=== PATIENT | female | born 1960 | race Caucasian/White ===

== ENCOUNTER 2020-05-11 09:55 | Emergency (ER) | payer BC, SELFPAY ==
[2020-05-11 10:18] VITALS: BP 144/91; PULSE 90; RESP 16; TEMP 36.8; O2SAT 97; BMI 31.8
--- NOTE | 2020-05-11 10:26 | HMH.EDUTC ---
[facility] [place] Clinical Impression: Dental infection Disposition: Home, Self-Care Condition on Discharge: Good Instructions: DI for Dental Pain, Clindamycin, Hydrocortisone Topical Additional Instructions: Stop taking Amoxicillin and start Clindamycin and follow up with Dentist tomorrow Continue taking oral steriods Topical Hydrocortisone to rash areas Return if needed straight to ER if any life threatening symptoms Prescriptions: clindamycin HCL [Clindamycin HCl 300mg Cap] 300 mg PO Q8 7 Days #21 cap Transmission Status: Received by [facility] Hydrocortisone Acetate [Hydrocortisone] 1 applicatio TP BID #1 tube Transmission Status: Received by [facility] Referrals: Edgard Ramires [Primary Care Provider] - As needed Time of Disposition: 10:50 Medical Decision Making - Kevin Inquiry Pt receiving controlled substance: No Kevin was queried for this patient: No Vital Signs: 05/11/20 10:18 05/11/20 11:02 Temperature 98.2 F 98.2 F Temperature Source Oral Oral Pulse Rate 90 Pulse Rate [Right Brachial] 90 Respiratory Rate 16 16 Blood Pressure 144/91 H Blood Pressure [Right Arm] 144/91 H Blood Pressure Mean [Right Arm] 108 Blood Pressure Source Automatic Cuff Blood Pressure Source [Right Arm] Automatic Cuff Blood Pressure Position Sitting Blood Pressure Position [Right Arm] Sitting 02 Sat by Pulse Oximetry 97 Oxygen Delivery Method Room Air Room Air Orders (Tests/Meds): ED MEDICATIONS Discontinued Medications Generic Name Dose Route Start Last Admin Trade Name Tuq PRN Reason Stop Dose Admin Ketorolac Tromethamine 60 mg 05/11/20 10:41 05/11/20 10:49 Ketorolac 60mg/2ml Vial IM 05/11/20 10:42 60 mg ONCE ONE Administration Medical Decision Narrative: Fluid filled blister like rash noted with two small areas on back of neck, one on forearm of left arm that appears to be drying and one on left ankle Reports last took Ibuprofen yesterday [facility] [place] - General Stated complaint: dental pain, knots in back of neck Time Seen by Provider: 05/11/20 10:26 Mode of Arrival: Ambulatory Source of Information: Patient Limitations: No Limitations Description of Symptoms (Recalled from Triage Doc. by RN): PATIENT REPORTS SHE HAD TWO TEETH PULLED X2 WEEKS AGO AND NOW HAS BLISTERS ON NECK, THIGHS AND FEET. BEEN ON AMOXICILLAN. HEENT Symptoms (Recalled from RN notes): No Resp Symptoms (Recalled from RN notes): No Skin Symptoms (Recalled from RN notes): Yes MS Symptoms (Recalled from RN notes): No Functional Status (Recalled from RN notes): WNL - History of Present Illness Provider Complaint: Patient states that she recently had two tooth extractions and surgeon cleaned out gum where she had infection from old root canal State that she doesnt think the antiboitics is working States that she is still having some pain States that she has been taking prescription medication but not helped much States that she also noticed a blister like lesions on the back of her neck one on her arm and one on her left ankle unsure if something has bite her or if it is from the medication - Related Data Previous Rx's Medication Instructions Recorded xkdxhafajxxyomj-iqpvkczxrpqkhtw-CT 10 ml PO Q4-6H PRN 7 Days #118 ml 06/13/19 2 mg-30 mg-10 mg/5 mL oral syrup Hydrocortisone Acetate 1 applicatio TP BID #1 tube 05/11/20 [Hydrocortisone] clindamycin HCL [Clindamycin HCl 300 mg PO Q8 7 Days #21 cap 05/11/20 300mg Cap] Allergies Allergy/AdvReac Type Severity Reaction Status Date / Time No Known Allergies Allergy Verified 06/13/19 10:26 - Worker's Comp Is this a Worker's Comp case?: No [facility] History - Hepatitis A Screen Drug use history?: No High risk sexual behaviors?: No History of sexually transmitted infection?: No Currently employed?: No Childcare worker?: No Do you have indoor plumbing?: Yes Do you have electricity?: Yes Attestation statement:: This patie
[2020-05-11 11:02] VITALS: BP 144/91; PULSE 90; RESP 16; TEMP 36.8; O2SAT 97
== END 2020-05-11 11:04 | disposition home or self-care (01) ==
PROVIDERS: Emergency Provider Nurse Practitioner; PCP Internal Medicine
DX: K04.7 Periapical abscess without sinus (principal)
CPT/HCPCS: 96372; 99201

== ENCOUNTER 2025-03-13 14:26 | Outpatient (CLI) | payer BC, SELFPAY ==
--- OUTSIDE RECORDS SUMMARY | 2025-03-13 14:31 | XMS_ITS | Clinical Summary ---
[facility] Organization [facility] Address [address] [place] [address] Care Team Providers Care Supervisor Weaving Name Role Phone Edgard Ramires MD Primary Care Provider [phone] Social History Tobacco Use Types Packs/Day Years Used Date Smoking Tobacco: Never Assessed Abuse Screen Answer Date Recorded Unsafe at Home or Work/School Not on file Feels Threatened by Someone? Not on file 02/2023 Does Anyone Keep You from Co ntacting Others or Doint Things Outside the Home? Not on file 04/04/2023 Physical Sign of Abuse Present Not on file 1 Housing Stability Answer Date Recorded Current Living Arrangements Not on file 02/2023 Potentially Unsafe Housing Conditions Not on mitra e 04/04/2023 Family and Community Support Answer Dar e Recorded Help with Day-to-Day Activities Not on file 04/04/2023 Lonely or Isolated Not on file 04/04/2023 Employment Answer Date Recorded Do you want help finding or keeping work or a candice b? Not on file 04/04/2023 Disabilities Answer Date Recorded Concentrating, Remembering, or Making Decisions Difficulty Not on file 04/04/2023 Doing Errands Independently Difficulty Not on fi le 04/04/2023 Education Answer Date Recorded Help with school or training? Not on file Preferred Language Not on file 04/04/2023 Comments Unknown Sex and Gender Information Value Date Recorded Sex Assigned at Not on file Legal Sex Female 11:41 AM EDT Gender Identity Not on file Sexual Orientation Not on file Plan of Treatment Health Maintenance Due Date Last Done Comments ANNUAL PHYSICAL 1960 Annual Gynecologic Pelvic and Breast Exam 1960 HEPATITIS C SCREENING 1960 TDAP/TD VACCINES (1 - Tdap) 1979 MAMMOGRAM 2000 COLOGUARD 2005 COLON CANCER SCREENING 5 YEAR SIGMOIDOSCOPY 2005 COLONOSCOPY 2005 [address] CANCER SCREENING 2005 CT COLONOGRAPHY 2005 FECAL OCCULT BLOOD TEST 2005 FIT Testing (1 year) 2005 Pneumococcal Vaccine 50+ (1 of 1 - PCV) 2010 ZOSTER VACCINE (1 of 2) 2010 COVID-19 Vaccine (1 - season) 2025 INFLUENZA VACCINE 03/27/2025 Insurance [employer] Care Teams Supervisor Weaving Relationship Specialty Start Date End Date Edgard Ramires MD [address] [facility] [id number] PCP - General Internal Medicine 03/18/16
--- OUTSIDE RECORDS SUMMARY | 2025-03-13 14:31 | XMS_ITS | Patient Health Record ---
Author Organization [facility] Address [address] [facility] [address] [place] [address] Care Team Providers Care Network Development Coordinator Name Role Phone Linda Bah Unavailable [phone] Reason For Referral No Information Social History Social History Sexual History: Social Info Question Answer Notes Sexual History Had sex in the past 12 months (vaginal, oral, or anal)? Yes Drugs/Alcohol: Social Info Question Answer Notes Drugs Have you used drugs other than those for medical reasons in the past 12 months? No Alcohol Screen Did you have a drink containing alcohol in the past year? Yes Points 0 Interpretation Negative Tobacco Use: Social Info Question Answer Notes Tobacco Use/Smoking Are you a former smoker Tobacco use other than smoking: Are you an other tobac co user? 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 SOCIAL HX: denies. EQL FISH OIL CAPSULE TYLENOL EXTRA STRENGTH TABLET Surgical History Surgery Date(Month/Year) Tubal- 1988, Back surgery- 1991, Hystere ctomy- 2003
[2025-03-13 15:40] LABS: Hematocrit 46.4 % (37.0-47.0); Hemoglobin 16.2 g/dL (12.2-16.2); Immature Granulocytes % 0.4 %; Mean Corpuscular HGB Conc 34.9 g/dL (31.8-35.4); Mean Corpuscular Hemoglobin 32.1 pg (27.0-31.2); Mean Corpuscular Volume 92.1 fl (81-99); Nucleated Red Blood Cells % 0 %; Platelet Count 363 K/mm3 (142-424); Red Blood Count 5.04 M/mm3 (4.20-5.40); Red Cell Distribution Width-SD 40.4 fL; White Blood Count 13.7 K/mm3 (4.8-10.8)
[2025-03-13 15:54] LABS: Alanine Aminotransferase 70 U/L (12-78); Albumin Level 4.4 g/dl (3.5-5.0); Albumin/Globulin Ratio 1.5 (1.1-1.8); Alkaline Phosphatase 186 U/L (38-126); Anion Gap 16.1 mEq/L (5-15); Aspartate Amino Transferase 60 U/L (14-36); Bilirubin,Total 1.1 mg/dl (0.2-1.3); Blood Urea Nitrogen 14 mg/dl (7-17); Calcium 9.5 mg/dl (8.4-10.2); Carbon Dioxide 23 mmol/L (22.0-30.0); Chloride 98 mmol/L (98-107); Cholesterol 210 mg/dl (140-200); Creatinine,Serum 0.80 mg/dl (0.52-1.04); Estimated Glomerular Filt Rate 72 ml/min (>60); GFR (African American) 87 ML/MIN (>60); Globulin 2.9 g/dL (1.3-3.2); Glucose 114 mg/dl (74-100); HDL Cholesterol 43 mg/dl (40-60); Potassium 4.1 mmoL/L (3.5-5.1); Sodium 133 mmol/L (136-145); Total Protein,Serum 7.3 g/dl (6.3-8.2); Triglycerides 166 mg/dl (30-150)
[2025-03-13 17:08] LABS: Free Thyroxine Index 3.0 ug/dL (5.93-13.13); T4 (Thyroxine) 8.7 ug/dl (5.53-11.0); Triiodothryronine (T3) Uptake 34 % (23.5-40.5)
[2025-03-13 17:10] LABS: 25-OH Vitamin D, Total < 12.8 ng/mL (30-100)
[2025-03-13 17:22] LABS: Thyroid Stimulating Hormone 4.28 uIU/mL (0.465-4.68)
[2025-03-13 18:33] LABS: Hemoglobin A1C 5.6 % (4.0-6.0)
== END 2025-03-13 23:59 | disposition home or self-care (01) ==
LOC: LAB.DROPOF 14:27
PROVIDERS: PCP Family Medicine; Visit Provider Family Medicine
DX: E03.9 Hypothyroidism, unspecified (principal); I10 Essential (primary) hypertension; K21.9 Gastro-esophageal reflux disease without esophagitis; E78.5 Hyperlipidemia, unspecified; E55.9 Vitamin D deficiency, unspecified; R73.09 Other abnormal glucose
CPT/HCPCS: 36415; 80053; 80061; 82306; 83036; 84436; 84443; 84479; 85025